=== PATIENT | male | born 1990 | race Caucasian/White ===

== ENCOUNTER 2017-08-27 23:54 | Emergency (ER) | payer MEDICAID, OTHER ==
[~2017-08-27] VITALS: Ht 172.7 cm; Wt 67.0 kg
[2017-08-28 00:03] VITALS: BP 143/95
[2017-08-28] MEDS ORDERED: DEXAMETHASONE 10 MG/ML VIAL IM ONE (01:00)
== END 2017-08-28 01:05 | disposition home or self-care (01) ==
LOC: ER 23:54
DX: R21 Rash and other nonspecific skin eruption (principal); F12.10 Cannabis abuse, uncomplicated
CPT/HCPCS: 96372; 99283; J1100